=== PATIENT | female | born 1970 ===

== ENCOUNTER 2021-01-17 11:30 | Inpatient (IN) | payer OTHER ==
[~2021-01-17] VITALS: Ht 157.5 cm; Wt 68.0 kg
[2021-01-25] MEDS ORDERED: IBUPROFEN800 MG PO (07:01)
[2021-01-25] MEDS ORDERED: NEURONTIN600 MG PO (07:01)
[2021-01-25] MEDS ORDERED: POLY119PG PO (07:01)
[2021-01-25] MEDS ORDERED: FLAGYL500MG PO (07:01)
[2021-01-25] MEDS ORDERED: SIMETHICONE125 M1 PO (07:01)
== END 2021-01-25 09:36 | disposition home or self-care (01) | DRG 742 ==
LOC: OB/GYN 01-23 05:14 → O/R 01-23 05:14 → OB/GYN 01-23 11:30
PROVIDERS: ADMIT Obstetrics & Gynecology; ATTEND Obstetrics & Gynecology
PROC: 0UB70ZZ Excision of Bilateral Fallopian Tubes, Open Approach (ICD-10-PCS; 2021-01-23)
PROC: 30233N1 Transfusion of Nonautologous Red Blood Cells into Peripheral Vein, Percutaneous Approach (ICD-10-PCS; 2021-01-23)
PROC: 0UT90ZZ Resection of Uterus, Open Approach (ICD-10-PCS; principal; 2021-01-23 14:15)
DX: D25.1 Intramural leiomyoma of uterus (principal); D62 Acute posthemorrhagic anemia; D25.2 Subserosal leiomyoma of uterus; N72 Inflammatory disease of cervix uteri; N80.0 Endometriosis of uterus; N93.9 Abnormal uterine and vaginal bleeding, unspecified; R10.2 Pelvic and perineal pain